=== PATIENT | male | born 1945 | race Caucasian/White ===

== ENCOUNTER 2018-02-17 17:50 | Inpatient (IN) ==
--- NOTE | 2018-02-17 18:04 | Emergency Department Note ---
Disposition Clinical Impression: Shortness of breath, Weakness, Pneumonia, Altered mental status Disposition: Admitted As Inpatient Condition: Fair General Adult HPI - General Stated complaint: poss stemi Time Seen by Provider: 02/17/18 17:59 - Related Data Home Medications Medication Instructions Recorded Confirmed Mometasone/Formoterol [Dulera 200 2 puff IH BID 02/17/18 02/17/18 Mcg/5 Mcg Inhaler] Montelukast [Singulair] 10 mg PO QPM 02/17/18 02/17/18 Tamsulosin [Flomax] 0.4 mg PO HS 02/17/18 02/18/18 Tiotropium [place] [Spiriva 2 puff IH DAILY 02/17/18 02/17/18 Respimat] Warfarin Sodium [Warfarin Sodium] 5 mg PO QPM 02/17/18 02/17/18 Allergies Allergy/AdvReac Type Severity Reaction Status Date / Time codeine Allergy Rash Verified 07/20/17 19:37 IVP DYE Allergy Rash Uncoded 07/20/17 19:37 Past Medical History - Past Medical History Medical history: Reports: kidney stones, other - Social History Smoking Status: Never smoker Smokeless Tobacco Status: No Alcohol use: Reports: none Course Vital Signs Temperature 99.7 F H 02/17/18 17:58 Pulse Rate 112 02/17/18 17:58 Respiratory Rate 20 02/17/18 17:58 Blood Pressure 124/55 02/17/18 17:58 O2 Sat by Pulse Oximetry 92 02/17/18 17:58 Temperature 97.7 F 02/19/18 10:53 Pulse Rate 91 02/19/18 10:53 Respiratory Rate 17 02/19/18 10:53 Blood Pressure 122/67 02/19/18 10:53 O2 Sat by Pulse Oximetry 94 02/19/18 10:53 Oxygen Delivery Oxygen Delivery Nasal Cannula Medical Decision Making - Lab Data Result diagrams: 02/19/18 05:50 02/19/18 05:50 Lab Results 02/17/18 02/17/18 02/17/18 Range/Units 18:51 18:51 18:51 WBC 20.1 H (4.3-11.1) K/mcL RBC 5.41 (4.19-5.50) M/mcL Hgb 16.5 (12.9-16.9) g/dL Hct 51.5 H (37.5-50.1) % MCV 95.2 (83.0-100.0) fL MCH 30.5 (28.0-33.3) pg MCHC 32.0 (31.6-35.5) g/dL RDW 13.9 (11.5-14.5) % Plt Count 172 (140-400) K/mcL MPV 9.6 (9.4-12.4) fL Immature Gran % 0.6 (0-4) % Seg Neutrophils % 89.9 % Lymphocytes % 2.6 % Monocytes % 6.7 % Eosinophils % 0.0 % Basophils % 0.2 % Neutrophils # 18.0 H (1.6-8.9) K/mcL Lymphocytes # 0.5 L (0.6-4.6) K/mcL Monocytes # 1.4 H (0.0-1.3) K/mcL Eosinophils # 0.0 (0.0-0.6) K/mcL Basophils # 0.0 (0.0-0.2) K/mcL PT 32.1 H (9.4-12.1) Seconds INR 2.9 APTT 41.1 H (26.0-36.0) Seconds Sodium 140 (136-145) mEq/L Potassium 3.9 (3.5-5.1) mEq/L Chloride 108 H (98-107) mEq/L Carbon Dioxide 26 (23-29) mEq/L BUN 11 (8-23) mg/dL Creatinine 0.94 (0.70-1.30) mg/dL Est GFR ( Amer) > 60 (> 60) Est GFR (Non-Af Amer) > 60 (> 60) BUN/Creatinine Ratio 12 (6-26) Glucose 155 H (70-105) mg/dL POC Glucose (58-89) Calculated Osmolality 293 (280-300) Lactic Acid (0.5-2.2) mmol/L Calcium 9.2 (8.6-10.3) mg/dL Total Bilirubin (0.3-1.0) mg/dL AST (13-39) Units/L ALT (7-52) Units/L Alkaline Phosphatase (34-104) Units/L Troponin I < 0.03 (< 0.04) ng/mL B-Natriuretic Peptide (Less than 100) pg/mL Serum Total Protein (6.4-8.9) g/dL Albumin (3.5-5.7) g/dL Globulin (2.4-3.5) g/dL Albumin/Globulin Ratio (1.1-2.2) Urine Color (Yellow) Urine Clarity (Clear) Urine pH (5.0-8.0) pH Units Ur Specific [place] (1.010-1.025) Urine Protein (Neg-Trace) mg/dL Urine Glucose (UA) (Normal) mg/dL Urine Ketones (Negative) mg/dL Urine Blood (Negative) Urine Nitrite (Negative) Urine Bilirubin (Negative) Urine Urobilinogen (Normal) mg/dL Ur Leukocyte Esterase (Negative) Ur Culture Indicated? (NO) 02/17/18 02/17/18 02/17/18 Range/Units 18:51 19:32 19:59 WBC (4.3-11.1) K/mcL RBC (4.19-5.50) M/mcL Hgb (12.9-16.9) g/dL Hct (37.5-50.1) % MCV (83.0-100.0) fL MCH (28.0-33.3) pg MCHC (31.6-35.5) g/dL RDW (11.5-14.5) % Plt Count (140-400) K/mcL MPV (9.4-12.4) fL Immature Gran % (0-4) % Seg Neutrophils % % Lymphocytes % % Monocytes % % Eosinophils % % Basophils % % Neutrophils # (1.6-8.9) K/mcL Lymphocytes # (0.6-4.6) K/mcL Monocytes # (0.0-1.3) K/mcL Eosinophils # (0.0-0.6) K/mcL Basophils # (0.0-0.2) K/mcL PT (9.4-12.1) Seconds INR APTT (26.0-36.0) Seconds Sodium (136-145) mEq/L Potassium (3.5-5.1) mEq/L Chloride (98-107) mEq/L Carbon Dioxide (23-29) mEq/L BUN (8-23) mg/dL Creatinine (0.70-1.30) mg/dL Est GFR ( Amer) (> 60) Est GFR (Non-Af Amer) (> 60) BUN/Creatinine Ratio (6-26) Glucose (70-105) mg/dL POC Glucose (58-89) Calculated Osmolality (280-300) Lactic Acid 1.6 1.4 (0.5-2.2) mmol/L Calcium (8.6-10.3) mg/dL Total Bilirubin (0.3-1.0) mg/dL AST (13-39) Units/L ALT (7-52) Units/L Alkaline Phosphatase (34-104) Units/L Troponin I (< 0.04) ng/mL B-Natriuretic Peptide (Less than 100) pg/mL Serum Total Protein (6.4-8.9) g/dL Albumin (3.5-5.7) g/dL Globulin (2.4-3.5) g/dL Albumin/Globulin Ratio (1.1-2.2) Urine Color Yellow (Yellow) Urine Clarity Clear (Clear) Urine pH 7.0 (5.0-8.0) pH Units Ur Specific [place] 1.010 (1.010-1.025) Urine Protein Negative (Neg-Trace) mg/dL Urine Glucose (UA) Normal (Normal) mg/dL Urine Ketones Negative (Negative) mg/dL Urine Blood Negative (Negative) Urine Nitrite Negative (Negative) Urine Bilirubin Negative (Negative) Urine Urobilinogen Normal (Normal) mg/dL Ur Leukocyte Esterase Negative (Negative) Ur Culture Indicated? NO (NO) 02/17/18 02/18/18 02/18/18 Range/Units 19:59 06:09 06:09 WBC 22.0 H (4.3-11.1) K/mcL RBC 5.11 (4.19-5.50) M/mcL Hgb 15.8 (12.9-16.9) g/dL Hct 48.2 (37.5-50.1) % MCV 94.3 (83.0-100.0) fL MCH 30.9 (28.0-33.3) pg MCHC 32.8 (31.6-35.5) g/dL RDW 13.7 (11.5-14.5) % Plt Count 170 (140-400) K/mcL MPV 9.7 (9.4-12.4) fL Immature Gran % 1.0 (0-4) % Seg Neutrophils % 93.3 % Lymphocytes % 4.2 % Monocytes % 1.4 % Eosinophils % 0.0 % Basophils % 0.1 % Neutrophils # 20.5 H (1.6-8.9) K/mcL Lymphocytes # 0.9 (0.6-4.6) K/mcL Monocytes # 0.3 (0.0-1.3) K/mcL Eosinophils # 0.0 (0.0-0.6) K/mcL Basophils # 0.0 (0.0-0.2) K/mcL PT 28.9 H (9.4-12.1) Seconds INR 2.6 APTT (26.0-36.0) Seconds Sodium (136-145) mEq/L Potassium (3.5-5.1) mEq/L Chloride (98-107) mEq/L Carbon Dioxide (23-29) mEq/L BUN (8-23) mg/dL Creatinine (0.70-1.30) mg/dL Est GFR ( Amer) (> 60) Est GFR (Non-Af Amer) (> 60) BUN/Creatinine Ratio (6-26) Glucose (70-105) mg/dL POC Glucose (58-89) Calculated Osmolality (280-300) Lactic Acid (0.5-2.2) mmol/L Calcium (8.6-10.3) mg/dL Total Bilirubin (0.3-1.0) mg/dL AST (13-39) Units/L ALT (7-52) Units/L Alkaline Phosphatase (34-104) Units/L Troponin I (< 0.04) ng/mL B-Natriuretic Peptide 39 (Less than 100) pg/mL Serum Total Protein (6.4-8.9) g/dL Albumin (3.5-5.7) g/dL Globulin (2.4-3.5) g/dL Albumin/Globulin Ratio (1.1-2.2) Urine Color (Yellow) Urine Clarity (Clear) Urine pH (5.0-8.0) pH Units Ur Specific [place] (1.010-1.025) Urine Protein (Neg-Trace) mg/dL Urine Glucose (UA) (Normal) mg/dL Urine Ketones (Negative) mg/dL Urine Blood (Negative) Urine Nitrite (Negative) Urine Bilirubin (Negative) Urine Urobilinogen (Normal) mg/dL Ur Leukocyte Esterase (Negative) Ur Culture Indicated? (NO) 02/18/18 02/18/18 02/18/18 Range/Units 06:09 07:07 11:49 WBC (4.3-11.1) K/mcL RBC (4.19-5.50) M/mcL Hgb (12.9-16.9) g/dL Hct (37.5-50.1) % MCV (83.0-100.0) fL MCH (28.0-33.3) pg MCHC (31.6-35.5) g/dL RDW (11.5-14.5) % Plt Count (140-400) K/mcL MPV (9.4-12.4) fL Immature Gran % (0-4) % Seg Neutrophils % % Lymphocytes % % Monocytes % % Eosinophils % % Basophils % % Neutrophils # (1.6-8.9) K/mcL Lymphocytes # (0.6-4.6) K/mcL Monocytes # (0.0-1.3) K/mcL Eosinophils # (0.0-0.6) K/mcL Basophils # (0.0-0.2) K/mcL PT (9.4-12.1) Seconds INR APTT (26.0-36.0) Seconds Sodium 139 (136-145) mEq/L Potassium 4.2 (3.5-5.1) mEq/L Chloride 107 (98-107) mEq/L Carbon Dioxide 26 (23-29) mEq/L BUN 16 (8-23) mg/dL Creatinine 1.09 (0.70-1.30) mg/dL Est GFR ( Amer) > 60 (> 60) Est GFR (Non-Af Amer) > 60 (> 60) BUN/Creatinine Ratio 15 (6-26) Glucose 163 H (70-105) mg/dL POC Glucose 146 H 139 H (58-89) Calculated Osmolality 293 (280-300) Lactic Acid (0.5-2.2) mmol/L Calcium 9.0 (8.6-10.3) mg/dL Total Bilirubin 0.7 (0.3-1.0) mg/dL AST 54 H (13-39) Units/L ALT 21 (7-52) Units/L Alkaline Phosphatase 64 (34-104) Units/L Troponin I (< 0.04) ng/mL B-Natriuretic Peptide (Less than 100) pg/mL Serum Total Protein 6.9 (6.4-8.9) g/dL Albumin 3.7 (3.5-5.7) g/dL Globulin 3.2 (2.4-3.5) g/dL Albumin/Globulin Ratio 1.2 (1.1-2.2) Urine Color (Yellow) Urine Clarity (Clear) Urine pH (5.0-8.0) pH Units Ur Specific [place] (1.010-1.025) Urine Protein (Neg-Trace) mg/dL Urine Glucose (UA) (Normal) mg/dL Urine Ketones (Negative) mg/dL Urine Blood (Negative) Urine Nitrite (Negative) Urine Bilirubin (Negative) Urine Urobilinogen (Normal) mg/dL Ur Leukocyte Esterase (Negative) Ur Culture Indicated? (NO) Critical Care Time Critical Care Time: Yes Total Critical Care Time: 30 Attestation: The high probability of a clinically significant, sudden or life threatening deterioration of the [] system(s) required my full and direct attention, intervention and personal management. The aggregate critical care time was [] minutes. This time is in addition to time spent performing reported procedures but includes the following: [] Data Review and interpretation [] Patient assessment and monitoring of vital signs [] Documentation [] Medication orders and management Attestation Statement - Attestation Attestation: I examined this patient and my medical decision-making was reviewed with the Resident Physician. I agree with the documented findings, disposition and treatment plan as described except to the extent set forth below. [id number] time provided Patient arrives by EMS complaining of dyspnea. He is visibly dyspneic at the time of arrival. States he does wear CPAP at home. Patient seen in conjunction with the resident physician Dr. Jacob
[2018-02-17] MEDS ORDERED: Furosemide 40 MG/4 ML VIAL IVP ONE (18:09)
--- NOTE | 2018-02-17 18:14 | Emergency Department Note ---
Disposition Clinical Impression: Shortness of breath, Weakness Disposition: Still a Patient Condition: Fair Time of Disposition: 18:51 General Adult HPI - General Stated complaint: poss stemi Time Seen by Provider: 02/17/18 17:59 Source: patient, family, EMS Mode of arrival: EMS Limitations: no limitations Nursing Notes Reviewed: Yes Vital Signs Reviewed: Yes - History of Present Illness HPI Narrative: Patient is a 73-year-old male that presents the emergency department via EMS for not acting himself today. Family states that he seemed to be not acting like himself and Stating that he was cold when the house was hot. States that he is normally able to be up and active however now he seems like he is unable to get around quite as well. Family reports that he has a history of right- sided hearing loss. Patient states that he has had increase of shortness of breath for which she wears 4 L of oxygen at home but denies any active chest pain at this time. Pain Scale: 0 - Related Data Home Medications Medication Instructions Recorded Confirmed Dulera 100 Mcg/5 Mcg Inhaler 07/20/17 Montelukast 07/20/17 Spiriva 07/20/17 Tamsulosin 07/20/17 Tylenol 07/20/17 Warfarin 07/20/17 Previous Rx's Medication Instructions Recorded Nitrofurantoin Monohyd/M-Cryst 100 mg PO BID #14 capsule 07/20/17 [Macrobid 100 mg Capsule] Phenazopyridine HCl [Pyridium] 200 mg PO TID #6 tab 07/20/17 Tamsulosin [Flomax] 0.8 mg PO DAILY #7 cap.er.24h 07/20/17 Allergies Allergy/AdvReac Type Severity Reaction Status Date / Time codeine Allergy Rash Verified 07/20/17 19:37 IVP DYE Allergy Rash Uncoded 07/20/17 19:37 All systems ED: reviewed and negative except as stated. Cardiovascular: Denies: chest pain Respiratory: Reports: dyspnea Musculoskeletal: Reports: back pain (chronic) Past Medical History - Past Medical History Medical history: Reports: kidney stones, other - Social History Smoking Status: Never smoker Smokeless Tobacco Status: No Alcohol use: Reports: none Drug use: Reports: none Physical Exam - General Limitations: no limitations General appearance: alert, in distress (mild) - Head Head exam: atraumatic, normocephalic - Eye Eye exam: Present: normal appearance, EOMI - Neck Neck exam: Present: normal inspection, full ROM, trachea midline - Respiratory Respiratory exam: Present: other (decreased breath sounds bilaterally) - Cardiovascular Cardiovascular exam: Present: normal rhythm, tachycardia, normal heart sounds, + S1, +S2 - Abdominal Exam Abdominal exam: Present: soft, Non-Tender, normal bowel sounds - Extremities Exam Extremities exam: Present: other (2+ pitting edema bilateral lower extremity.) - Neurological Exam Neurological exam: Present: alert, oriented X3 - Expanded Neurological Exam Patient oriented to: Present: person, place, time Speech: Present: fluid speech Cranial nerves: EOM function (II, III, IV, ): Normal, facial sensation (V): Normal, facial palsy (VII): Normal, gag reflex (IX): Normal, spinal accessory function (XI): Normal, tongue deviation (XII): Normal Cerebellar function: finger to nose: Normal, heel to chung: Abnormal Left, Abnormal Right (unable to perform due to weakness) Motor strength - LUE: 5/5 Motor strength - RUE: 5/5 Motor strength - LLE: 3/5 Motor strength - RLE: 3/5 Sensory exam upper extremity: light touch: Normal Sensory exam lower extremity: light touch: Normal Coma Scale Eye Opening: Spontaneous Coma Scale Motor Response: Obeys Commands Coma Scale Verbal Response: Oriented Coma Scale Total: 15 - Psychiatric Psychiatric exam: Present: normal affect, normal mood - Skin Skin exam: Present: warm, dry, intact Course Vital Signs Temperature 99.7 F H 02/17/18 17:58 Pulse Rate 112 02/17/18 17:58 Respiratory Rate 20 02/17/18 17:58 Blood Pressure 124/55 02/17/18 17:58 O2 Sat by Pulse Oximetry 92 02/17/18 17:58 Temperature 99.7 F H 02/17/18 17:58 Pulse Rate 111 02/17/18 18:12 Respiratory Rate 29 02/17/18 18:27 Blood Pressure 124/55 02/17/18 18:27 O2 Sat by Pulse Oximetry 95 02/17/18 18:27 Oxygen Delivery Oxygen Delivery Nasal Cannula Medical Decision Making - MDM Narrative Medical decision making narrative: Due to the patient having some changes in mentation reported by family and being tachycardic there is concern for possible infectious process. We will obtain a CBC, BMP, troponin, chest x-ray, EKG, blood cultures, urinalysis patient also has 2+ pitting edema bilateral lower extremity so we will provide the patient with a dose of Lasix here in the emergency department. Patient was placed on BiPAP due to having increased work of breathing. Chest x-ray showed bilateral infiltrates. Due to shift change the patient will need to be signed out to and Dr. Ybarra
[2018-02-17 19:05] LABS: Basophils % 0.2 %; Hematocrit 51.5 % (37.5-50.1); Hemoglobin 16.5 g/dL (12.9-16.9); Immature Granulocytes % 0.6 % (0-4); Lymphocytes # 0.5 K/mcL (0.6-4.6); Lymphocytes % 2.6 %; Mean Corpuscular Hemoglobin 30.5 pg (28.0-33.3); Mean Corpuscular Volume 95.2 fL (83.0-100.0); Mean Platelet Volume 9.6 fL (9.4-12.4); Monocytes # 1.4 K/mcL (0.0-1.3); Monocytes % 6.7 %; Platelet Count 172 K/mcL (140-400); Red Blood Count 5.41 M/mcL (4.19-5.50); Red Cell Distribution Width 13.9 % (11.5-14.5); Segmented Neutrophils % 89.9 %
[2018-02-17 19:12] LABS: INR 2.9; Prothrombin Time 32.1 Seconds (9.4-12.1)
[2018-02-17 19:15] LABS: Activated Partial Thrombo Time 41.1 Seconds (26.0-36.0)
[2018-02-17 19:24] LABS: BUN/Creatinine Ratio 12 (6-26); Blood Urea Nitrogen 11 mg/dL (8-23); Calcium 9.2 mg/dL (8.6-10.3); Carbon Dioxide 26 mEq/L (23-29); Chloride 108 mEq/L (98-107); Glucose 155 mg/dL (70-105); Osmolality,Calculated 293 (280-300); Potassium 3.9 mEq/L (3.5-5.1); Sodium 140 mEq/L (136-145); Troponin I < 0.03 ng/mL (< 0.04); eGFR For African Americans > 60 (> 60); eGFR For Non-African Americans > 60 (> 60)
[2018-02-17] MEDS ORDERED: Levofloxacin 750 MG/150 ML 750 MG/150 ML BAG IVPB ONE (19:39)
[2018-02-17 19:51] LABS: Bilirubin,Urine Negative (Negative); Blood,Urine Negative (Negative); Clarity,Urine Clear (Clear); Color,Urine Yellow (Yellow); Glucose,Urine (UA) Normal (Normal); Ketones,Urine Negative (Negative); Leukocyte Esterase,Urine Negative (Negative); Nitrite,Urine Negative (Negative); Protein,Urine Negative (Neg-Trace); Urobilinogen,Urine Normal (Normal)
--- NOTE | 2018-02-17 19:55 | Emergency Department Note ---
Disposition Clinical Impression: Shortness of breath, Weakness Pneumonia Qualifiers: Pneumonia type: due to unspecified organism Laterality: right Lung location: lower lobe of lung Qualified Code(s): J18.1 - Lobar pneumonia, unspecified organism Altered mental status Qualifiers: Altered mental status type: unspecified Qualified Code(s): R41.82 - Altered mental status, unspecified Disposition: Admitted As Inpatient Condition: Fair Time of Disposition: 23:00 General Adult HPI - General Chief complaint: ED General Medical Stated complaint: poss stemi Time Seen by Provider: 02/17/18 17:59 Source: patient, family, EMS Mode of arrival: EMS Limitations: no limitations Nursing Notes Reviewed: Yes Vital Signs Reviewed: Yes - History of Present Illness Pain Scale: 0 - Related Data Home Medications Medication Instructions Recorded Confirmed Mometasone/Formoterol [Dulera 200 2 puff IH BID 02/17/18 02/17/18 Mcg/5 Mcg Inhaler] Montelukast [Singulair] 10 mg PO QPM 02/17/18 02/17/18 Tamsulosin [Flomax] 0.4 mg PO DAILY 02/17/18 02/17/18 Tiotropium [place] [Spiriva 2 puff IH DAILY 02/17/18 02/17/18 Respimat] Warfarin Sodium [Warfarin Sodium] 5 mg PO QPM 02/17/18 02/17/18 Allergies Allergy/AdvReac Type Severity Reaction Status Date / Time codeine Allergy Rash Verified 07/20/17 19:37 IVP DYE Allergy Rash Uncoded 07/20/17 19:37 Cardiovascular: Denies: chest pain Respiratory: Reports: dyspnea Musculoskeletal: Reports: back pain (chronic) Past Medical History - Past Medical History Medical history: Reports: kidney stones, other - Social History Smoking Status: Never smoker Smokeless Tobacco Status: No Alcohol use: Reports: none Drug use: Reports: none Physical Exam - General Limitations: no limitations General appearance: alert, in distress (mild) Course Course Narrative: Patient seen and examined. Patient was signed out to me by the day team. Patient is a 73-year-old male with worsening altered mental status today. Has felt unwell for the last several days. Chest x-ray showed multifocal infiltrates. Patient is currently on BiPAP for possible fluid overload. Since there is concern for fluid overload, holding off on any fluids. We will do a CTA of the chest to rule out pulmonary embolus. We will also start Levaquin to treat for possible pneumonia and check for influenza. - Reevaluation(s) Reevaluation #1: CT of the chest showed right lower lobe pneumonia and no signs of pulmonary embolus. Influenza negative. I discussed with hospitalist Dr. Begum who accepted patient for admission. Time: 20:00 Vital Signs Temperature 99.7 F H 02/17/18 17:58 Pulse Rate 112 02/17/18 17:58 Respiratory Rate 20 02/17/18 17:58 Blood Pressure 124/55 02/17/18 17:58 O2 Sat by Pulse Oximetry 92 02/17/18 17:58 Temperature 98.9 F 02/17/18 23:54 Pulse Rate 96 02/17/18 23:54 Respiratory Rate 18 02/18/18 04:50 Blood Pressure 118/70 02/17/18 23:54 O2 Sat by Pulse Oximetry 96 02/18/18 04:50 Oxygen Delivery Oxygen Delivery Nasal Cannula Medical Decision Making - Medical Records Medical records reviewed: Yes I reviewed the patient's medical records. - Lab Data Lab results reviewed: Yes I reviewed the patient's lab results. Result diagrams: 02/17/18 18:51 02/17/18 18:51 Lab Results 02/17/18 02/17/18 02/17/18 Range/Units 18:51 18:51 18:51 WBC 20.1 H (4.3-11.1) K/mcL RBC 5.41 (4.19-5.50) M/mcL Hgb 16.5 (12.9-16.9) g/dL Hct 51.5 H (37.5-50.1) % MCV 95.2 (83.0-100.0) fL MCH 30.5 (28.0-33.3) pg MCHC 32.0 (31.6-35.5) g/dL RDW 13.9 (11.5-14.5) % Plt Count 172 (140-400) K/mcL MPV 9.6 (9.4-12.4) fL Immature Gran % 0.6 (0-4) % Seg Neutrophils % 89.9 % Lymphocytes % 2.6 % Monocytes % 6.7 % Eosinophils % 0.0 % Basophils % 0.2 % Neutrophils # 18.0 H (1.6-8.9) K/mcL Lymphocytes # 0.5 L (0.6-4.6) K/mcL Monocytes # 1.4 H (0.0-1.3) K/mcL Eosinophils # 0.0 (0.0-0.6) K/mcL Basophils # 0.0 (0.0-0.2) K/mcL PT 32.1 H (9.4-12.1) Seconds INR 2.9 APTT 41.1 H (26.0-36.0) Seconds Sodium 140 (136-145) mEq/L Potassium 3.9 (3.5-5.1) mEq/L Chloride 108 H (98-107) mEq/L Carbon Dioxide 26 (23-29) mEq/L BUN 11 (8-23) mg/dL Creatinine 0.94 (0.70-1.30) mg/dL Est GFR ( Amer) > 60 (> 60) Est GFR (Non-Af Amer) > 60 (> 60) BUN/Creatinine Ratio 12 (6-26) Glucose 155 H (70-105) mg/dL Calculated Osmolality 293 (280-300) Lactic Acid (0.5-2.2) mmol/L Calcium 9.2 (8.6-10.3) mg/dL Troponin I < 0.03 (< 0.04) ng/mL B-Natriuretic Peptide (Less than 100) pg/mL Urine Color (Yellow) Urine Clarity (Clear) Urine pH (5.0-8.0) pH Units Ur Specific [place] (1.010-1.025) Urine Protein (Neg-Trace) mg/dL Urine Glucose (UA) (Normal) mg/dL Urine Ketones (Negative) mg/dL Urine Blood (Negative) Urine Nitrite (Negative) Urine Bilirubin (Negative) Urine Urobilinogen (Normal) mg/dL Ur Leukocyte Esterase (Negative) Ur Culture Indicated? (NO) 02/17/18 02/17/18 02/17/18 Range/Units 18:51 19:32 19:59 WBC (4.3-11.1) K/mcL RBC (4.19-5.50) M/mcL Hgb (12.9-16.9) g/dL Hct (37.5-50.1) % MCV (83.0-100.0) fL MCH (28.0-33.3) pg MCHC (31.6-35.5) g/dL RDW (11.5-14.5) % Plt Count (140-400) K/mcL MPV (9.4-12.4) fL Immature Gran % (0-4) % Seg Neutrophils % % Lymphocytes % % Monocytes % % Eosinophils % % Basophils % % Neutrophils # (1.6-8.9) K/mcL Lymphocytes # (0.6-4.6) K/mcL Monocytes # (0.0-1.3) K/mcL Eosinophils # (0.0-0.6) K/mcL Basophils # (0.0-0.2) K/mcL PT (9.4-12.1) Seconds INR APTT (26.0-36.0) Seconds Sodium (136-145) mEq/L Potassium (3.5-5.1) mEq/L Chloride (98-107) mEq/L Carbon Dioxide (23-29) mEq/L BUN (8-23) mg/dL Creatinine (0.70-1.30) mg/dL Est GFR ( Amer) (> 60) Est GFR (Non-Af Amer) (> 60) BUN/Creatinine Ratio (6-26) Glucose (70-105) mg/dL Calculated Osmolality (280-300) Lactic Acid 1.6 1.4 (0.5-2.2) mmol/L Calcium (8.6-10.3) mg/dL Troponin I (< 0.04) ng/mL B-Natriuretic Peptide (Less than 100) pg/mL Urine Color Yellow (Yellow) Urine Clarity Clear (Clear) Urine pH 7.0 (5.0-8.0) pH Units Ur Specific [place] 1.010 (1.010-1.025) Urine Protein Negative (Neg-Trace) mg/dL Urine Glucose (UA) Normal (Normal) mg/dL Urine Ketones Negative (Negative) mg/dL Urine Blood Negative (Negative) Urine Nitrite Negative (Negative) Urine Bilirubin Negative (Negative) Urine Urobilinogen Normal (Normal) mg/dL Ur Leukocyte Esterase Negative (Negative) Ur Culture Indicated? NO (NO) 02/17/18 Range/Units 19:59 WBC (4.3-11.1) K/mcL RBC (4.19-5.50) M/mcL Hgb (12.9-16.9) g/dL Hct (37.5-50.1) % MCV (83.0-100.0) fL MCH (28.0-33.3) pg MCHC (31.6-35.5) g/dL RDW (11.5-14.5) % Plt Count (140-400) K/mcL MPV (9.4-12.4) fL Immature Gran % (0-4) % Seg Neutrophils % % Lymphocytes % % Monocytes % % Eosinophils % % Basophils % % Neutrophils # (1.6-8.9) K/mcL Lymphocytes # (0.6-4.6) K/mcL Monocytes # (0.0-1.3) K/mcL Eosinophils # (0.0-0.6) K/mcL Basophils # (0.0-0.2) K/mcL PT (9.4-12.1) Seconds INR APTT (26.0-36.0) Seconds Sodium (136-145) mEq/L Potassium (3.5-5.1) mEq/L Chloride (98-107) mEq/L Carbon Dioxide (23-29) mEq/L BUN (8-23) mg/dL Creatinine (0.70-1.30) mg/dL Est GFR ( Amer) (> 60) Est GFR (Non-Af Amer) (> 60) BUN/Creatinine Ratio (6-26) Glucose (70-105) mg/dL Calculated Osmolality (280-300) Lactic Acid (0.5-2.2) mmol/L Calcium (8.6-10.3) mg/dL Troponin I (< 0.04) ng/mL B-Natriuretic Peptide 39 (Less than 100) pg/mL Urine Color (Yellow) Urine Clarity (Clear) Urine pH (5.0-8.0) pH Units Ur Specific [place] (1.010-1.025) Urine Protein (Neg-Trace) mg/dL Urine Glucose (UA) (Normal) mg/dL Urine Ketones (Negative) mg/dL Urine Blood (Negative) Urine Nitrite (Negative) Urine Bilirubin (Negative) Urine Urobilinogen (Normal) mg/dL Ur Leukocyte Esterase (Negative) Ur Culture Indicated? (NO) - Radiology Data Radiology results reviewed: Yes I reviewed the patient's radiology results. Chest X-Ray 02/17/18 18:09 IMPRESSION: Cardiomegaly with multifocal bilateral infiltrates. D/ / 02/17/2018 18:41:54 Domenico Yates MD / petty Interpreting Provider: Domenico Yates MD Chest CTA 02/17/18 19:51 IMPRESSION: 1. Right lower lobe pneumonia. 2. No evidence of pulmonary embolism. 3. Mild cardiomegaly and mild coronary artery calcification. 4. Mild hepatic steatosis. D/ / Ankush Teran MD / Ankush Teran MD Interpreting Provider: Ankush Teran MD Attestation Statement - Attestation Attestation: I, Eleuterio Ybarra DO, examined this patient [id number] and my medical decision-making was reviewed with Dr. Ayala Montes, Resident Physician. I agree with the documented findings, disposition and treatment plan as described except to the extent set forth below. Please see my progress notes for details. 73-year-old male signed out to the daytime physicians. Patient presented emergency approximate 45 minutes prior to arrival. Patient presented with increased work of breathing tachycardia mild hypoxia and intermittent confusion. EMS transported and multiple EKGs of concern for myocardial infarction. EKG collected on presentation here shows progression of a right bundle branch most likely exacerbated secondary to the tachycardia. This is compared to previous EKG it appears to be similar and stable. There is no acute signs of ST segment elevation myocardial infarction this time. Patient will be treated for infectious etiology with concern on presentation with the bilateral course breath sounds as well as possible fluid overload. First dose of IV Lasix was given prior to arrival as well as imaging modalities including chest x-ray EKG CBC chemistry lactic acid blood cultures and urinalysis were all ordered. Troponin and BNP are still pending. Patient is found to have bilateral interstitial pneumonia on presentation but he still persistently tachycardic and hypoxic. Patient is on blood thinners so the likelihood of pulmonary emboli is low considering the presentation persistence of the symptoms will be evaluated with CT angiography. Patient will need admission to the hospital. IV antibiotics were started covering for community-acquired pneumonia. Blood cultures were collected. Patient patient has sisters with a syphilis but does not appear to be septic. Patient is otherwise clinical stable with normal lactic acidosis. We will continue to monitor here. Fluid resuscitation is not required at this time. Disposition will be admission. No critical care provider the patient's treatment course at this time. Vital signs have remained stable. See detailed documentation of the physical exam, medical intervention, medical decision-making and disposition in the resident physician's note.
[2018-02-17] MEDS ORDERED: methylPREDNISolone 125 MG/2 ML VIAL IVP ONE (19:56)
--- NOTE | 2018-02-17 23:32 | Internal Med History&Physical ---
Date of Encounter: 02/17/18 Time of Encounter: 23:11 Assessment and Plan (1) Pneumonia Current visit: Yes Status: Acute Continue levofloxacin Qualifiers: Pneumonia type: due to unspecified organism Laterality: right Lung location: lower lobe of lung Qualified Code(s): J18.1 - Lobar pneumonia, unspecified organism (2) Acute and chronic respiratory failure Current visit: Yes Status: Acute Patient was on 4 L nasal cannula at home, currently requiring BiPAP for acute respiratory distress. Likely from pneumonia and a COPD exacerbation Qualifiers: Respiratory failure complication: hypoxia Qualified Code(s): J96.21 - Acute and chronic respiratory failure with hypoxia (3) CARMELO on CPAP Current visit: Yes Status: Chronic Home CPAP (4) Hx of pulmonary embolus Current visit: Yes Status: Acute Patient had a history of multiple PEs, continue Coumadin INR is therapeutic (5) COPD (chronic obstructive pulmonary disease) Current visit: Yes Status: Acute Patient has COPD quit smoking many years ago, we will continue IV steroids scheduled nebulizer Qualifiers: COPD type: COPD with acute exacerbation Qualified Code(s): J44.1 - Chronic obstructive pulmonary disease with (acute) exacerbation (6) Morbid obesity Current visit: Yes Status: Acute (7) Sepsis Current visit: Yes Status: Acute Sepsis from pneumonia was WBC 20 K respiratory over 25 Qualifiers: Sepsis type: sepsis due to unspecified organism Qualified Code(s): A41.9 - Sepsis, unspecified organism (8) Metabolic encephalopathy Current visit: Yes Status: Acute Patient was confused and off the baseline on presentation likely from sepsis and pneumonia COPD exacerbation Internal Medicine - H&P: HPI Chief complaint: SOB Admitted From: Home Plans for Post Hospital Care: Home History of present illness: Mr. 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 Present he presented to emergency room for altered mental status. Per patient family, patient was not acting like himself, he complained of some cold and shortness of breath for 1 day. he does have dry cough no sputum's. Denies chest pain. In emergency room he was found WBC 20 K INR 2.9 UA was negative troponin BMP are negative. Chest x-ray shows right-sided pneumonia. The patient is morbid obesity, had CT angiogram which is negative for PE, positive for right-sided pneumonia. Patient was placed on BiPAP due to respiratory distress. FiO2 45%. Patient is going to be admitted for acute on chronic hypoxic respiratory failure from pneumonia. Admitting diagnosis #1 metabolic encephalopathy from pneumonia #2 bacterial pneumonia #3 sepsis from pneumonia Past Med Surg Social Fam HX - Past Medical History Medical history: cancer, COPD, myocardial infarction, pulmonary embolus Psychiatric history: no psych history - Past Surgical History Surgical History: cholecystectomy - Social History Smoking Status: Never smoker Smokeless Tobacco Status: No Alcohol use: none Drug use: none Internal Medicine - H&P: Meds Mometasone/Formoterol [Dulera 200 Mcg/5 Mcg Inhaler] 2 puff IH BID 02/17/18 [ History] Montelukast [Singulair] 10 mg PO QPM 02/17/18 [History] Tamsulosin [Flomax] 0.4 mg PO DAILY 02/17/18 [History] Tiotropium [place] [Spiriva Respimat] 2 puff IH DAILY 02/17/18 [History] Warfarin Sodium [Warfarin Sodium] 5 mg PO QPM 02/17/18 [History] 3 Allergy/AdvReac Type Severity Reaction Status Date / Time codeine Allergy Rash Verified 07/20/17 19:37 IVP DYE Allergy Rash Uncoded 07/20/17 19:37 All Systems PM: A 10-system review of systems was performed and is negative for pertinent findings except as documented above in the HPI. - Constitutional Vitals: Temp Pulse Resp BP Pulse Ox 98.8 F 95 19 115/73 93 02/17/18 22:31 02/17/18 22:31 02/17/18 22:31 02/17/18 22:31 02/17/18 22:31 General appearance: Present: A&O X 3, morbidly obese Exam: CONSTITUTIONAL: Patient appears as an age appropriate male well developed, in no acute distress. EYES Clear sclerae, bilateral pupils are equal, reactive to light and accommodation. Extraocular movements are intact RESPIRATORY: No accessory muscle use, bilateral clear to auscultation, no wheezing, no crackles/rales. CARDIOVASCULAR: Regular heart rate, normal S1 and S2, no murmurs GASTROINTESTINAL: bowel sounds present, soft, no tenderness. No hepatosplenomegaly. No bilateral CVA tenderness MUSCULOSKELETAL: Joints in normal range of motion, no clubbing, ++ edema, no cyanosis. Bilateral peripheral pulses 2+ LYMPHATIC no lymphadenopathy in neck, groin and axilla bilaterally, no thyromegaly. NEUROLOGIC: CN II to XII are grossly intact, no focal neurological deficit. Deep tendon reflexes 2+ bilaterally. Normal light touch sensation to upper and lower extremity PSYCHIATRIC: Oriented x3, with good insight, mood is euthymic. No hallucinations or delusions. SKIN: Skin warm and dry, no rashes, no open wound. Internal Med - H&P Results - Labs CBC & Chem 7: 02/17/18 18:51 02/17/18 18:51
[2018-02-17] MEDS ORDERED: Albuterol 2.5 MG/3 ML NEBULIZER IH PRN (23:44)
[2018-02-18] MEDS: Ipratropium/Albuterol Neb 3 ML IH SCH ×5 (00:02→22:40)
[2018-02-18] MEDS: cefTRIAXone 2,000 MG in Water for inj. (sterile) 20 ML 10 ML IVP SCH ×2 (00:32→08:36)
[2018-02-18] MEDS: MethylPREDNISolone 40 MG/ML VIAL IVP SCH ×4 (00:32→18:40)
[2018-02-18] MEDS: Azithromycin 500 MG in D5% in Water 250 ML IVPB SCH (00:32)
[2018-02-18] MEDS: Tiotropium 18 MCG inhalation IH SCH ×2 (04:48→11:19)
[2018-02-18 06:31] LABS: Basophils % 0.1 %; Hematocrit 48.2 % (37.5-50.1); Hemoglobin 15.8 g/dL (12.9-16.9); Lymphocytes # 0.9 K/mcL (0.6-4.6); Lymphocytes % 4.2 %; Mean Corpuscular HGB Conc 32.8 g/dL (31.6-35.5); Mean Corpuscular Hemoglobin 30.9 pg (28.0-33.3); Mean Corpuscular Volume 94.3 fL (83.0-100.0); Mean Platelet Volume 9.7 fL (9.4-12.4); Monocytes # 0.3 K/mcL (0.0-1.3); Monocytes % 1.4 %; Neutrophils # 20.5 K/mcL (1.6-8.9); Platelet Count 170 K/mcL (140-400); Red Blood Count 5.11 M/mcL (4.19-5.50); Red Cell Distribution Width 13.7 % (11.5-14.5); Segmented Neutrophils % 93.3 %
[2018-02-18 06:42] LABS: Alanine Aminotransferase 21 Units/L (7-52); Albumin 3.7 g/dL (3.5-5.7); Albumin/Globulin Ratio 1.2 (1.1-2.2); Alkaline Phosphatase 64 Units/L (34-104); Aspartate Amino Transferase 54 Units/L (13-39); BUN/Creatinine Ratio 15 (6-26); Bilirubin,Total 0.7 mg/dL (0.3-1.0); Blood Urea Nitrogen 16 mg/dL (8-23); Carbon Dioxide 26 mEq/L (23-29); Chloride 107 mEq/L (98-107); Globulin 3.2 g/dL (2.4-3.5); Glucose 163 mg/dL (70-105); Osmolality,Calculated 293 (280-300); Potassium 4.2 mEq/L (3.5-5.1); Sodium 139 mEq/L (136-145); Total Protein 6.9 g/dL (6.4-8.9); eGFR For African Americans > 60 (> 60); eGFR For Non-African Americans > 60 (> 60)
[2018-02-18 07:05] LABS: INR 2.6; Prothrombin Time 28.9 Seconds (9.4-12.1)
[2018-02-18] MEDS: *HR* Warfarin 5 MG TABLET PO SCH ×2 (09:17→09:18)
[2018-02-18] MEDS ORDERED: Dextrose Gel 15 GM/37.5 ML TUBE PO PRN ×2 (09:26)
[2018-02-18] MEDS ORDERED: *HR* Dextrose 50 % in Water (Syg) 50 ML SYRINGE IVP PRN (09:26)
[2018-02-18] MEDS ORDERED: D5% in Water 1,000 ML IVC PRN (09:26)
[2018-02-18] MEDS ORDERED: *HR* LORazepam 2 MG/ML VIAL IVP PRN ×3 (09:31)
--- NOTE | 2018-02-18 09:43 | Internal Med Progress Note ---
Date of Encounter: 02/18/18 Time of Encounter: 09:20 - Subjective Interval history: History of present illness (From H&P): Mr. 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 Present he presented to emergency room for altered mental status. Per patient family, patient was not acting like himself, he complained of some cold and shortness of breath for 1 day. he does have dry cough no sputum's. Denies chest pain. In emergency room he was found WBC 20 K INR 2.9 UA was negative troponin BMP are negative. Chest x-ray shows right-sided pneumonia. The patient is morbid obesity, had CT angiogram which is negative for PE, positive for right-sided pneumonia. Patient was placed on BiPAP due to respiratory distress. FiO2 45%. Patient is going to be admitted for acute on chronic hypoxic respiratory failure from pneumonia. Admitting diagnosis #1 metabolic encephalopathy from pneumonia #2 bacterial pneumonia #3 sepsis from pneumonia Interval history: Breathing more comfortably Requiring increased O2 demand Assessment and Plan (1) Communty Pneumonia Continue Rocephin and Azithromycin Blood cx pending DuoNebs RLL infltrate on CXR (2) COPD with possible exacerbation High dose steroids started over night Continue home bronchodilators plus DuoNebs (3) CARMELO on CPAP Home CPAP (4) Hx of pulmonary embolus Patient had a history of multiple PEs Continue Coumadin with RPh to dose INR is therapeutic (5) Sepsis: Associated with PNA (6) Morbid obesity Current visit: Yes Status: Acute - Constitutional Vitals: Temp Pulse Resp BP Pulse Ox 97.8 F 64 15 101/69 93 02/18/18 06:56 02/18/18 06:56 02/18/18 06:56 02/18/18 06:56 02/18/18 06:56 General appearance: Present: A&O X 3, morbidly obese - Head Head exam: Present: atraumatic, normocephalic - Eye Eye exam: Present: PERRL, conjuntiva pink, sclera anicteric Pupils: Present: PERRL - Neck Neck exam general surgery: Present: thyromegaly, supple, trachea midline. Absent: lymphadenopathy - Respiratory Respiratory exam: Present: rales, wheezes. Absent: accessory muscle use, rhonchi - Cardiovascular Cardiovascular exam: Present: RRR, +S1, +S2. Absent: diastolic murmur, gallop, rubs, systolic murmur - GI/Abdominal GI/Abdominal exam: Present: normal bowel sounds, soft, no peritoneal signs. Absent: distended, tenderness - Extremities Exam Extremities exam: Present: warm. Absent: calf tenderness, cyanotic, pedal edema - Neurological Exam Neurological exam: Present: CN II-XII intact, oriented X3, no focal deficits. Absent: pronater drift, facial droop, speech deficit - Psychiatric Psychiatric exam: Present: normal affect, normal mood - Skin Skin exam: Present: dry, intact, warm Internal Medicine: Result - Labs CBC & Chem 7: 02/18/18 06:09 02/18/18 06:09 Labs: Short CBC 02/18/18 Range/Units 06:09 WBC 22.0 H (4.3-11.1) K/mcL Hgb 15.8 (12.9-16.9) g/dL Hct 48.2 (37.5-50.1) % Plt Count 170 (140-400) K/mcL Neutrophils # 20.5 H (1.6-8.9) K/mcL BMP 02/18/18 06:09 Sodium 139 Potassium 4.2 Chloride 107 Carbon Dioxide 26 BUN 16 Creatinine 1.09 Glucose 163 H Calcium 9.0 Liver Function 02/18/18 Range/Units 06:09 Total Bilirubin 0.7 (0.3-1.0) mg/dL AST 54 H (13-39) Units/L ALT 21 (7-52) Units/L Alkaline Phosphatase 64 (34-104) Units/L Albumin 3.7 (3.5-5.7) g/dL - ABG Interpretation ABG results: PT/INR, D-dimer PT 28.9 Seconds (9.4-12.1) H 02/18/18 06:09 Consult Discharge Plan - Plan Referrals: NONE,PCP [Primary Care Provider] -
[2018-02-18] MEDS: Insulin LISPRO 300 UNITS/3 ML VIAL SQ SCH ×3 (12:03→20:38)
[2018-02-18] MEDS ORDERED: Warfarin perPT PO SCH (18:00)
[2018-02-18] MEDS ORDERED: *HR* Warfarin 5 MG TABLET PO ONE (18:00)
--- NOTE | 2018-02-18 18:56 | Electrocardiograph Report ---
[facility] Test Date: 2018-02-17 Pat Name: Arthur Flynn Department: 102 Room: 2S3 Gender: M Cost Report Clerk: Msc : 1945 Requested By: Jason Jacob Order Number: [id number] Reading MD: Prabhu Jennings MD Measurements Intervals [place] Rate: 110 P: 32 CT: 185 QRS: 263 QRSD: 151 T: 33 QT: 349 QTc: 414 Interpretive Statements SINUS TACHYCARDIA MARKED RIGHT AXIS DEVIATION RIGHT BUNDLE BRANCH BLOCK Electronically Signed On 02-18-2018 18:54:52 EDT by Prabhu Jennings MD
[2018-02-18] MEDS: Acetaminophen 325 MG TABLET PO PRN (22:43)
[2018-02-19] MEDS: Azithromycin 500 MG in D5% in Water 250 ML IVPB SCH (00:11)
[2018-02-19] MEDS: MethylPREDNISolone 40 MG/ML VIAL IVP SCH ×4 (00:11→16:57)
[2018-02-19] MEDS: Ipratropium/Albuterol Neb 3 ML IH SCH ×4 (04:53→22:00)
[2018-02-19 06:15] LABS: Basophils % 0.1 %; Hematocrit 48.2 % (37.5-50.1); Hemoglobin 15.6 g/dL (12.9-16.9); Lymphocytes % 4.3 %; Mean Corpuscular HGB Conc 32.4 g/dL (31.6-35.5); Mean Corpuscular Hemoglobin 30.5 pg (28.0-33.3); Mean Corpuscular Volume 94.1 fL (83.0-100.0); Mean Platelet Volume 10.2 fL (9.4-12.4); Monocytes # 0.7 K/mcL (0.0-1.3); Monocytes % 2.8 %; Neutrophils # 21.4 K/mcL (1.6-8.9); Platelet Count 173 K/mcL (140-400); Red Blood Count 5.12 M/mcL (4.19-5.50); Red Cell Distribution Width 13.7 % (11.5-14.5); Segmented Neutrophils % 91.8 %
[2018-02-19 06:23] LABS: INR 2.5; Prothrombin Time 27.3 Seconds (9.4-12.1)
[2018-02-19 06:33] LABS: BUN/Creatinine Ratio 27 (6-26); Blood Urea Nitrogen 28 mg/dL (8-23); Calcium 9.3 mg/dL (8.6-10.3); Carbon Dioxide 25 mEq/L (23-29); Chloride 105 mEq/L (98-107); Glucose 146 mg/dL (70-105); Osmolality,Calculated 292 (280-300); Potassium 3.9 mEq/L (3.5-5.1); Sodium 137 mEq/L (136-145); eGFR For African Americans > 60 (> 60); eGFR For Non-African Americans > 60 (> 60)
[2018-02-19 06:43] LABS: Platelet Estimate Normal (Normal)
[2018-02-19] MEDS ORDERED: CefTRIAXone 2,000 MG VIAL ONE (09:30)
[2018-02-19] MEDS: cefTRIAXone 2,000 MG in Water for inj. (sterile) 20 ML 10 ML IVP SCH ×2 (09:33→10:53)
[2018-02-19] MEDS: Insulin LISPRO 300 UNITS/3 ML VIAL SQ SCH ×4 (09:33→21:58)
--- NOTE | 2018-02-19 10:29 | Internal Med Progress Note ---
Date of Encounter: 02/19/18 Time of Encounter: 10:29 - Subjective Interval history: History of present illness (From H&P): Mr. 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 Present he presented to emergency room for altered mental status. Per patient family, patient was not acting like himself, he complained of some cold and shortness of breath for 1 day. he does have dry cough no sputum's. Denies chest pain. In emergency room he was found WBC 20 K INR 2.9 UA was negative troponin BMP are negative. Chest x-ray shows right-sided pneumonia. The patient is morbid obesity, had CT angiogram which is negative for PE, positive for right-sided pneumonia. Patient was placed on BiPAP due to respiratory distress. FiO2 45%. Patient is going to be admitted for acute on chronic hypoxic respiratory failure from pneumonia. Admitting diagnosis #1 metabolic encephalopathy from pneumonia #2 bacterial pneumonia #3 sepsis from pneumonia Interval history: 02/19/18 Breathing more comfortably Requiring increased O2 demand 02/20/18 Pt anxious to get home to [place] but desats <90 off O2 Still requiring 4L NC Very tremulous On CIWA but not requiring treatment Assessment and Plan (1) Communty Pneumonia Continue Rocephin and Azithromycin Blood cx pending DuoNebs RLL infltrate on CXR (2) COPD with possible exacerbation High dose steroids started over night Continue home bronchodilators plus DuoNebs (3) CARMELO on CPAP Home CPAP (4) Hx of pulmonary embolus Patient had a history of multiple PEs Continue Coumadin with RPh to dose INR is therapeutic (5) Sepsis: Associated with PNA (6) Morbid obesity Current visit: Yes Status: Acute - Constitutional Vitals: Temp Pulse Resp BP Pulse Ox 97.4 F L 84 18 105/65 93 02/19/18 07:30 02/19/18 07:30 02/19/18 07:30 02/19/18 07:30 02/19/18 09:49 General appearance: Present: A&O X 3, morbidly obese, answers questions appropriately - Head Head exam: Present: atraumatic, normocephalic - Eye Eye exam: Present: PERRL, conjuntiva pink, sclera anicteric Pupils: Present: PERRL - Neck Neck exam general surgery: Present: supple, trachea midline. Absent: lymphadenopathy - Respiratory Respiratory exam: Present: CTAB. Absent: accessory muscle use, rales, rhonchi, wheezes Additional comments: Lungs CTAB today - Cardiovascular Cardiovascular exam: Present: RRR, +S1, +S2. Absent: diastolic murmur, gallop, rubs, systolic murmur - GI/Abdominal GI/Abdominal exam: Present: normal bowel sounds, soft, no peritoneal signs. Absent: diminished bowel sounds, distended, firm, guarding, tenderness - Extremities Exam Extremities exam: Present: warm, radial pulses palpable and symmetrical. Absent : calf tenderness, cyanotic, pedal edema - Neurological Exam Neurological exam: Present: CN II-XII intact, oriented X3, no focal deficits. Absent: pronater drift, facial droop, speech deficit - Skin Skin exam: Present: dry, intact Internal Medicine: Result - Labs CBC & Chem 7: 02/19/18 19:50 02/19/18 05:50 Labs: Short CBC 02/19/18 Range/Units 05:50 WBC 23.3 H (4.3-11.1) K/mcL Hgb 15.6 (12.9-16.9) g/dL Hct 48.2 (37.5-50.1) % Plt Count 173 (140-400) K/mcL Neutrophils # 21.4 H (1.6-8.9) K/mcL BMP 02/19/18 05:50 Sodium 137 Potassium 3.9 Chloride 105 Carbon Dioxide 25 BUN 28 H Creatinine 1.03 Glucose 146 H Calcium 9.3 - ABG Interpretation ABG results: PT/INR, D-dimer PT 27.3 Seconds (9.4-12.1) H 02/19/18 05:50 Consult Discharge Plan - Plan Referrals: NONE,PCP [Primary Care Provider] -
[2018-02-19] MEDS ORDERED: *HR* Warfarin 3 MG TABLET PO ONE (18:00)
[2018-02-19 20:25] LABS: Basophils % 0.1 %; Hematocrit 46.7 % (37.5-50.1); Hemoglobin 15.1 g/dL (12.9-16.9); Lymphocytes # 0.5 K/mcL (0.6-4.6); Lymphocytes % 2.8 %; Mean Corpuscular HGB Conc 32.3 g/dL (31.6-35.5); Mean Corpuscular Hemoglobin 30.4 pg (28.0-33.3); Mean Corpuscular Volume 94.2 fL (83.0-100.0); Mean Platelet Volume 10.3 fL (9.4-12.4); Monocytes # 0.5 K/mcL (0.0-1.3); Monocytes % 2.8 %; Neutrophils # 17.3 K/mcL (1.6-8.9); Platelet Count 189 K/mcL (140-400); Red Blood Count 4.96 M/mcL (4.19-5.50); Red Cell Distribution Width 13.9 % (11.5-14.5); Segmented Neutrophils % 93.3 %
[2018-02-19] MEDS: Acetaminophen 325 MG TABLET PO PRN (21:57)
[2018-02-20] MEDS: Azithromycin 500 MG in D5% in Water 250 ML IVPB SCH (00:47)
[2018-02-20] MEDS: Ipratropium/Albuterol Neb 3 ML IH SCH ×4 (04:18→22:05)
[2018-02-20] MEDS: MethylPREDNISolone 40 MG/ML VIAL IVP SCH ×2 (05:35→17:02)
[2018-02-20 06:27] LABS: INR 2.8; Prothrombin Time 30.8 Seconds (9.4-12.1)
[2018-02-20 06:48] LABS: BUN/Creatinine Ratio 31 (6-26); Blood Urea Nitrogen 28 mg/dL (8-23); Calcium 8.9 mg/dL (8.6-10.3); Carbon Dioxide 27 mEq/L (23-29); Chloride 105 mEq/L (98-107); Glucose 128 mg/dL (70-105); Osmolality,Calculated 293 (280-300); Potassium 4.1 mEq/L (3.5-5.1); Sodium 138 mEq/L (136-145); eGFR For African Americans > 60 (> 60); eGFR For Non-African Americans > 60 (> 60)
[2018-02-20] MEDS: Acetaminophen 325 MG TABLET PO PRN (08:54)
[2018-02-20] MEDS: cefTRIAXone 2,000 MG in Water for inj. (sterile) 20 ML 10 ML IVP SCH (08:55)
[2018-02-20] MEDS: Insulin LISPRO 300 UNITS/3 ML VIAL SQ SCH ×4 (09:03→21:41)
--- NOTE | 2018-02-20 10:56 | Internal Med Progress Note ---
Date of Encounter: 02/20/18 Time of Encounter: 10:51 - Subjective Interval history: History of present illness (From H&P): Mr. 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 Present he presented to emergency room for altered mental status. Per patient family, patient was not acting like himself, he complained of some cold and shortness of breath for 1 day. he does have dry cough no sputum's. Denies chest pain. In emergency room he was found WBC 20 K INR 2.9 UA was negative troponin BMP are negative. Chest x-ray shows right-sided pneumonia. The patient is morbid obesity, had CT angiogram which is negative for PE, positive for right-sided pneumonia. Patient was placed on BiPAP due to respiratory distress. FiO2 45%. Patient is going to be admitted for acute on chronic hypoxic respiratory failure from pneumonia. Admitting diagnosis #1 metabolic encephalopathy from pneumonia #2 bacterial pneumonia #3 sepsis from pneumonia Interval history: 02/18/18 Breathing more comfortably Requiring increased O2 demand 02/19/18 Pt anxious to get home to [place] but desats <90 off O2 Still requiring 4L NC Very tremulous On CIWA but not requiring treatment 02/20/2018: Less suppl. O2 needed Afebrile Assessment and Plan (1) Communty Pneumonia Continue Rocephin and Azithromycin Blood cx pending DuoNebs RLL infltrate on CXR Supplemental O2 requirement decreased to 3 L/ NC today Afebrile He will need Home O2 (needs Home O2 evaluation) (2) COPD with possible exacerbation High dose steroids started over night Continue home bronchodilators plus DuoNebs Deescalate steroids today (3) CARMELO on CPAP Home CPAP (4) Hx of pulmonary embolus Patient had a history of multiple PEs Continue Coumadin with RPh to dose INR is therapeutic (5) Sepsis: Associated with PNA (6) Morbid obesity Current visit: Yes Status: Acute - Constitutional Vitals: Temp Pulse Resp BP Pulse Ox 98.0 F 64 16 113/67 93 02/20/18 07:15 02/20/18 07:15 02/20/18 07:15 02/20/18 07:15 02/20/18 10:06 General appearance: Present: A&O X 3, morbidly obese, answers questions appropriately - Head Head exam: Present: atraumatic, normocephalic - Eye Eye exam: Present: PERRL, conjuntiva pink, sclera anicteric Pupils: Present: PERRL - Neck Neck exam general surgery: Present: supple, trachea midline. Absent: lymphadenopathy - Respiratory Respiratory exam: Present: CTAB. Absent: accessory muscle use, rales, rhonchi, wheezes Additional comments: Lungs sound clear today. - Cardiovascular Cardiovascular exam: Present: RRR, +S1, +S2. Absent: diastolic murmur, gallop, rubs, systolic murmur - GI/Abdominal GI/Abdominal exam: Present: normal bowel sounds, soft, no peritoneal signs. Absent: distended, tenderness - Extremities Exam Extremities exam: Present: warm, radial pulses palpable and symmetrical. Absent : calf tenderness, cyanotic, pedal edema - Neurological Exam Neurological exam: Present: CN II-XII intact, oriented X3, no focal deficits. Absent: pronater drift, facial droop, speech deficit - Skin Skin exam: Present: dry, intact Internal Medicine: Result - Labs CBC & Chem 7: 02/19/18 19:50 02/20/18 05:44 Labs: Short CBC 02/19/18 Range/Units 19:50 WBC 18.5 H (4.3-11.1) K/mcL Hgb 15.1 (12.9-16.9) g/dL Hct 46.7 (37.5-50.1) % Plt Count 189 (140-400) K/mcL Neutrophils # 17.3 H (1.6-8.9) K/mcL BMP 02/20/18 05:44 Sodium 138 Potassium 4.1 Chloride 105 Carbon Dioxide 27 BUN 28 H Creatinine 0.90 Glucose 128 H Calcium 8.9 - ABG Interpretation ABG results: PT/INR, D-dimer PT 30.8 Seconds (9.4-12.1) H 02/20/18 05:44 Consult Discharge Plan - Plan Referrals: NONE,PCP [Primary Care Provider] -
[2018-02-20] MEDS ORDERED: *HR* Warfarin 3 MG TABLET PO ONE (18:00)
[2018-02-21] MEDS: Azithromycin 500 MG in D5% in Water 250 ML IVPB SCH (00:11)
[2018-02-21] MEDS: Ipratropium/Albuterol Neb 3 ML IH SCH ×2 (03:57→09:53)
[2018-02-21 04:28] LABS: Basophils % 0.1 %; Hematocrit 43.1 % (37.5-50.1); Hemoglobin 14.2 g/dL (12.9-16.9); Immature Granulocytes % 0.9 % (0-4); Lymphocytes # 0.7 K/mcL (0.6-4.6); Lymphocytes % 6.9 %; Mean Corpuscular HGB Conc 32.9 g/dL (31.6-35.5); Mean Corpuscular Hemoglobin 30.8 pg (28.0-33.3); Mean Corpuscular Volume 93.5 fL (83.0-100.0); Monocytes # 0.5 K/mcL (0.0-1.3); Monocytes % 4.5 %; Neutrophils # 9.2 K/mcL (1.6-8.9); Platelet Count 180 K/mcL (140-400); Red Blood Count 4.61 M/mcL (4.19-5.50); Red Cell Distribution Width 13.8 % (11.5-14.5); Segmented Neutrophils % 87.6 %
[2018-02-21 04:32] LABS: INR 3.1; Prothrombin Time 34.2 Seconds (9.4-12.1)
[2018-02-21 04:48] LABS: BUN/Creatinine Ratio 29 (6-26); Blood Urea Nitrogen 22 mg/dL (8-23); Calcium 8.9 mg/dL (8.6-10.3); Carbon Dioxide 28 mEq/L (23-29); Chloride 105 mEq/L (98-107); Glucose 148 mg/dL (70-105); Osmolality,Calculated 290 (280-300); Potassium 4.4 mEq/L (3.5-5.1); Sodium 137 mEq/L (136-145); eGFR For African Americans > 60 (> 60); eGFR For Non-African Americans > 60 (> 60)
[2018-02-21] MEDS: MethylPREDNISolone 40 MG/ML VIAL IVP SCH (06:28)
[2018-02-21] MEDS: Insulin LISPRO 300 UNITS/3 ML VIAL SQ SCH ×2 (07:07→12:02)
--- NOTE | 2018-02-21 09:06 | Discharge Summary ---
Date of Encounter: 02/22/18 Time of Encounter: 09:06 Hospital course: Hospital course: Mr. Flynn is a 73 year old male who has history of COPD on 4 L nasal cannula at home, CARMELO on CPAP at night ad a history of multiple PE on Coumadin chronically. He presented to emergency room complained of worsening shortness of breath for 1 day. In emergency room he was found WBC 20 K INR 2.9 UA was negative troponin BMP are negative. His chest x-ray shows right-sided pneumonia. A CT angiogram was done because of history of previous PEs but it was negative for PE. It did show a right-sided pneumonia. Patient was placed on BiPAP but was quicly transitioned back to his baeline supplemental O2 use. He was treated with High-dose steroids, breathing treatments and Rocephin plus Azithromycin. His breathing improved and was discharged to home after tapering his steroids and changing antibiotics to oral Levaquin which he will take for a total of 10 days of abx. therapy. He was also sent home on a tapering dose of steroids. Discharge diagnoses: (1) Pneumonia (2) Acute and chronic respiratory failure (3) CARMELO on CPAP (4) Hx of pulmonary embolus (5) COPD (chronic obstructive pulmonary disease) (6) Morbid obesity (7) Positive sepsis criteria Discharge discussed with: patient, family, nurse, social work, case management Time spent discussing smoking cessation with patient: more than 10 minutes - Time Spent with Patient Total time spent providing and/or coordinating discharge services: Greater than 30 minutes - Discharge Medications Prescriptions: Albuterol Sulfate [Albuterol Inhaler] 1 puff IH Q4HR 30 Days #1 inhaler Levofloxacin [Levaquin] 750 mg PO DAILY 6 Days #6 tablet predniSONE [PredniSONE] See Taper PO TAPER 9 Days #18 tablet Home Medications: Mometasone/Formoterol [Dulera 200 Mcg/5 Mcg Inhaler] 2 puff IH BID 02/17/18 [ History] Montelukast [Singulair] 10 mg PO QPM 02/17/18 [History] Tamsulosin [Flomax] 0.4 mg PO HS 02/17/18 [History] Tiotropium Hunter [Spiriva Respimat] 2 puff IH DAILY 02/17/18 [History] Warfarin Sodium 5 mg PO QPM 02/17/18 [History] Albuterol Sulfate [Albuterol Inhaler] 1 puff IH Q4HR 30 Days #1 inhaler [Rx] Levofloxacin [Levaquin] 750 mg PO DAILY 6 Days #6 tablet 02/21/18 [Rx] predniSONE [PredniSONE] See Taper PO TAPER 9 Days #18 tablet 02/21/18 [Rx] Allergies/Adverse Reactions: 3 Allergy/AdvReac Type Severity Reaction Status Date / Time codeine Allergy Rash Verified 07/20/17 19:37 IVP DYE Allergy Rash Uncoded 07/20/17 19:37 Date of admission: 02/18/18 14:58 Primary care physician: PCP NONE Discharging clinician: Krishan Avila - Constitutional Vitals: Temp Pulse Resp BP Pulse Ox 98.0 F 61 18 117/73 92 02/21/18 06:56 02/21/18 06:56 02/21/18 06:56 02/21/18 06:56 02/21/18 06:56 General appearance: Present: A&O X 3, morbidly obese, answers questions appropriately - Head Head exam: Present: atraumatic, normocephalic - Eye Eye exam: Present: PERRL, conjuntiva pink, sclera anicteric Pupils: Present: PERRL - Neck Neck exam general surgery: Present: supple, trachea midline. Absent: lymphadenopathy - Respiratory Respiratory exam: Present: CTAB. Absent: accessory muscle use, rales, rhonchi, wheezes - Cardiovascular Cardiovascular exam: Present: RRR, +S1, +S2. Absent: diastolic murmur, gallop, rubs, systolic murmur - GI/Abdominal GI/Abdominal exam: Present: normal bowel sounds, soft, no peritoneal signs. Absent: distended, tenderness - Extremities Exam Extremities exam: Present: warm, radial pulses palpable and symmetrical. Absent : calf tenderness, cyanotic, pedal edema - Neurological Exam Neurological exam: Present: CN II-XII intact, oriented X3, no focal deficits. Absent: pronater drift, facial droop, speech deficit - Psychiatric Psychiatric exam: Present: normal affect, normal mood - Skin Skin exam: Present: dry, intact - Patient Status Disposition: Home, Self-Care Condition: Fair - Discharge Instructions Instructions: Chronic Obstructive Pulmonary Disease (DC), Pneumonia (DC) Follow Up With: NONE,PCP [Primary Care Provider] -
[2018-02-21] MEDS: cefTRIAXone 2,000 MG in Water for inj. (sterile) 20 ML 10 ML IVP SCH (10:02)
[2018-02-21 11:06] VITALS: BP 114/66
[2018-02-21] MEDS ORDERED: Azithromycin 250 MG TABLET PO SCH (21:00)
[2018-02-22] MEDS ORDERED: predniSONE 10 MG TABLET PO SCH (09:00)
== END 2018-02-21 16:16 | disposition home or self-care (01) | DRG 871 ==
LOC: EMEROO 17:50 → 2ANU 17:50 → 2SOUTHHOLD 02-18 02:00 → 2ANU 02-19 05:30
PROVIDERS: ADMIT Hospitalist; ATTEND Family Medicine